=== PATIENT | female | born 1940 | race Caucasian/White ===

== ENCOUNTER → 2016-10-26 | Day surgery (SDC) | payer OTHER ==
[~2016-10-26] MED LIST: BUPIVACAINE 0.5% 10 ML SDV ONE; DEPO METHYLPREDNISOLONE 80 MG/ML SDV ONE
== END | disposition home or self-care (01) ==
LOC: FIMAGING 08:18
PROVIDERS: ATTEND Radiology Diagnostic Radiology
PROC: 3E0S3BZ Introduction of Anesthetic Agent into Epidural Space, Percutaneous Approach (ICD-10-PCS; principal; 2016-10-26)
PROC: 3E0S33Z Introduction of Anti-inflammatory into Epidural Space, Percutaneous Approach (ICD-10-PCS; principal; 2016-10-26)
DX: M46.1 Sacroiliitis, not elsewhere classified (principal); Z88.0 Allergy status to penicillin
CPT/HCPCS: J1040

== ENCOUNTER → 2016-11-15 | Outpatient (CLI) | payer OTHER | LOC: FIMAGING 15:37 | PROVIDERS: ATTEND Physician Assistant | DX: M16.11 Unilateral primary osteoarthritis, right hip (principal); M70.61 Trochanteric bursitis, right hip; M25.851 Other specified joint disorders, right hip ==

== ENCOUNTER → 2017-01-05 | Outpatient (CLI) | payer OTHER | LOC: FIMAGING 13:14 | PROVIDERS: ATTEND Nurse Practitioner | DX: M51.36 Other intervertebral disc degeneration, lumbar region (principal); Z98.1 Arthrodesis status ==

== ENCOUNTER → 2017-01-17 | Outpatient (CLI) | payer OTHER | LOC: FIMAGING 10:23 | PROVIDERS: ATTEND Nurse Practitioner | DX: M43.16 Spondylolisthesis, lumbar region (principal); M51.36 Other intervertebral disc degeneration, lumbar region; M47.896 Other spondylosis, lumbar region; M48.06 Spinal stenosis, lumbar region; M99.73 Connective tissue and disc stenosis of intervertebral foramina of lumbar region; Z98.1 Arthrodesis status ==

== ENCOUNTER → 2017-01-22 | Day surgery (SDC) | payer OTHER ==
[~2017-01-22] MED LIST changes: -BUPIVACAINE 0.5% 10 ML SDV ONE; -DEPO METHYLPREDNISOLONE 80 MG/ML SDV ONE; +TRIAMCINOLONE ACETONIDE 200 MG/5 ML MDV IM ONE
== END | disposition home or self-care (01) ==
LOC: FIMAGING 14:05
PROVIDERS: ATTEND Nurse Practitioner
PROC: 3E0S33Z Introduction of Anti-inflammatory into Epidural Space, Percutaneous Approach (ICD-10-PCS; principal; 2017-01-22)
DX: M54.16 Radiculopathy, lumbar region (principal); Z98.1 Arthrodesis status
CPT/HCPCS: J3301

== ENCOUNTER → 2017-01-25 | Outpatient (CLI) | payer OTHER | LOC: FIMAGING 11:58 | PROVIDERS: ATTEND Nurse Practitioner | DX: T84.226A Displacement of internal fixation device of vertebrae, initial encounter (principal); M48.06 Spinal stenosis, lumbar region; M51.85 Other intervertebral disc disorders, thoracolumbar region; Z98.1 Arthrodesis status ==

== ENCOUNTER → 2017-03-02 | Outpatient (CLI) | payer OTHER | LOC: FIMAGING 09:46 | PROVIDERS: ATTEND Surgery | DX: Z12.31 Encounter for screening mammogram for malignant neoplasm of breast (principal) | CPT/HCPCS: G0202-52 ==

== ENCOUNTER 2017-03-22 10:42 | Day surgery (SDC) | payer OTHER ==
[2017-03-22] MEDS ORDERED: LIDOCAINE 1% 300 MG/30 ML SDV ONE (12:38)
[2017-03-22] MEDS ORDERED: TRIAMCINOLONE ACETONIDE 200 MG/5 ML MDV IM ONE (12:38)
== END 2017-03-22 13:20 | disposition home or self-care (01) ==
LOC: FIMAGING 10:42
PROVIDERS: ATTEND Radiology Diagnostic Radiology
PROC: 3E0S33Z Introduction of Anti-inflammatory into Epidural Space, Percutaneous Approach (ICD-10-PCS; principal; 2017-03-22)
PROC: 3E0S3BZ Introduction of Anesthetic Agent into Epidural Space, Percutaneous Approach (ICD-10-PCS; principal; 2017-03-22)
PROC: B01B1ZZ Fluoroscopy of Spinal Cord using Low Osmolar Contrast (ICD-10-PCS; principal; 2017-03-22)
DX: M47.896 Other spondylosis, lumbar region (principal); M51.36 Other intervertebral disc degeneration, lumbar region; Z98.1 Arthrodesis status; I10 Essential (primary) hypertension
CPT/HCPCS: J3301

== ENCOUNTER 2017-07-18 05:32 | Inpatient (IN) | payer OTHER ==
[2017-07-18] MEDS ORDERED: ACETAMINOPHEN 500 MG TAB PO ONE (06:00)
[2017-07-18] MEDS ORDERED: GABAPENTIN 300 MG CAP PO ONE (06:00)
[2017-07-18] MEDS ORDERED: ceFAZolin 2 GM/SWFI 2 GM/20 ML SYR IVP ONE (06:00)
[2017-07-18] MEDS ORDERED: LIDOCAINE 1% 2 ML INJ ID PRN (06:39)
[2017-07-18] MEDS ORDERED: LR 1,000 ML IV ONE (06:39)
--- NOTE | 2017-07-18 06:44 | PDHPUP ---
History & Physical Update H&P update statement: This history and physical update is based on an assessment of the patient which was completed after admission or registration (within 24 hours), but prior to the surgery/procedure. H&P update: H&P reviewed & patient examined, no change in patient's condition since H&P completed
[2017-07-18] MEDS ORDERED: BUPIVACAINE 0.25% 30 ML SDV ONE (06:59)
[2017-07-18] MEDS ORDERED: THROMBIN (BOVINE) 5,000 UNIT VIAL TP ONE (06:59)
[2017-07-18] MEDS ORDERED: BACITRACIN 50,000 UNITS/10 ML SYR IRR ONE (07:00)
[2017-07-18] MEDS ORDERED: CHLORHEXIDINE GLUC HIBICLENS 118 ML BTL TP ONE (07:00)
[2017-07-18] MEDS ORDERED: BISACODYL 10 MG SUPP PR PRN (07:24)
[2017-07-18] MEDS ORDERED: POLYETHYLENE GLYCOL 3350 17 GM PKT PO PRN (07:24)
[2017-07-18] MEDS ORDERED: HYDROCODONE/APAP 5/325 TAB PO PRN (07:24)
[2017-07-18] MEDS ORDERED: ONDANSETRON DISINTEGRATING 4 MG TAB PO PRN (07:24)
[2017-07-18] MEDS ORDERED: NALOXONE HCL 0.4 MG/ML INJ IVP PRN ×2 (07:24→14:36)
[2017-07-18] MEDS ORDERED: MAGNESIUM HYDROXIDE 30 ML UDCUP PO PRN (07:24)
[2017-07-18] MEDS ORDERED: HYDROmorphone HCL/NS/PF 0.4 MG/2 ML SYR IVP PRN (07:24)
[2017-07-18] MEDS ORDERED: ONDANSETRON 4 MG/2 ML VIAL IVP PRN ×2 (07:24→14:36)
[2017-07-18] MEDS ORDERED: morphINE PCA 30 MG/30 ML PCA IV PRN (07:24)
[2017-07-18] MEDS ORDERED: LACTULOSE 20 GM/30 ML UDCUP PO PRN (07:24)
[2017-07-18] MEDS ORDERED: diphenhydrAMINE 25 MG CAP PO PRN (07:24)
[2017-07-18] MEDS ORDERED: NS W/ 20 KCl/L 1,000 ML IV SCH (07:30)
[2017-07-18] MEDS ORDERED: PROPOFOL/EMULSION 500 MG/50 ML BOTTLE IV ONE ×5 (07:43→13:26)
[2017-07-18] MEDS ORDERED: MIDAZOLAM 2 MG/2 ML VIAL ONE (07:43)
[2017-07-18] MEDS ORDERED: ROCURONIUM 50 MG/5 ML VIAL ONE (07:44)
[2017-07-18] MEDS ORDERED: LIDOCAINE 2% 100 MG/5 ML SYR ONE (07:44)
[2017-07-18] MEDS ORDERED: PHENYLEPHRINE 10 MG/ML SDV ONE (07:44)
[2017-07-18] MEDS ORDERED: DEXAMETHASONE 4 MG/ML VIAL ONE ×2 (07:44)
[2017-07-18] MEDS ORDERED: CETIRIZINE 10 MG TAB PO PRN (09:00)
--- NOTE | 2017-07-18 09:14 | PDANEPAE ---
ANE Past Medical History - Cardiovascular History Hx Hypertension: Yes Hx Arrhythmias: No Hx Chest Pain: No Hx Coronary Artery / Peripheral Vascular Disease: No Hx CHF / Valvular Disease: No Hx Palpitations: No Cardiovascular History Comment: NO CP - Pulmonary History Hx COPD: No Hx Asthma/Reactive Airway Disease: No Hx Recent Upper Respiratory Infection: No Hx Oxygen in Use at Home: No Hx Sleep Apnea: No Sleep Apnea Screening Result - Last Documented: Negative Pulmonary History Comment: HX PNEUMONIA X 3 SINCE - LAST . DENIES SOB W STAIRS - Neurologic History Hx Cerebrovascular Accident: No Hx Seizures: No Hx Dementia: No - Endocrine History Hx Diabetes: No - Renal History Hx Renal Disorders: Yes Renal History Comment: HX UTI'S- LAST 3 Y AGO - Liver History Hx Hepatic Disorders: No - Neurological & Psychiatric Hx Hx Neurological and Psychiatric Disorders: No - Cancer History Hx Cancer: Yes Cancer History Comment: R BREAST CA - Congenital Disorder History Hx Congenital Disorders: No - GI History Hx Gastrointestinal Disorders: Yes Gastrointestinal History Comment: REFLUX - Other Health History Other Health History: OA. HYST FOR ENDOMETRIOSIS - Chronic Pain History Chronic Pain: Yes (L KNEE) - Surgical History Prior Surgeries: Left Knee replacement 2103. SPINAL FUSION . HYST AGE 43- ENDOMETRIOSIS. R MASTECTOMY 01/25 W TISSUE EXP. L ANKLE TENDON REP ANE Review of Systems Review of Systems: - Exercise capacity METS (RN): 4 METS ANE Patient History - Allergies Allergies/Adverse Reactions: Penicillins Allergy (Verified 03/04/14 15:17) Hives - Home Medications Home Medications: Anastrozole [Arimidex 1 mg (*)] 1 mg PO DAILY 07/17/17 [Last Taken 07/16/17] Ascorbic Acid [Vitamin C 500 mg (*)] 1,000 mg PO DAILY PRN 07/17/17 [Last Taken 07/11/17] Calcium Carbonate [Oyster Shell Calcium 500 mg (*)] 1,000 mg PO DAILY 07/17/17 [ Last Taken 07/11/17] Cholecalciferol Vit D3 [Vitamin D3 (*)] 2,000 units PO DAILY 07/17/17 [Last Taken 07/04/17] Esomeprazole Magnesium [Nexium 24Hr] 20 mg PO Q3D 07/17/17 [Last Taken 07/12/17] Fexofenadine HCl [Ivette Allergy] 180 mg PO DAILY PRN 07/17/17 [Last Taken 3 Months Ago ~04/17/17] Herbals/Supplements -Info Only 1 ea PO DAILY 07/17/17 [Last Taken 07/11/17] Losartan Potassium [Cozaar 50 mg (*)] 50 mg PO DAILY 07/17/17 [Last Taken ] Meloxicam 15 mg PO DAILY 07/17/17 [Last Taken 07/11/17] [place]-3 Fatty Acids [Fish Oil 1000 mg (*)] 1,000 mg PO DAILY 07/17/17 [Last Taken 07/11/17] Simvastatin 10 mg PO DAILY 07/17/17 [Last Taken 07/16/17] Zolpidem Tartrate [Ambien 5MG (*)] 5 mg PO HS PRN 07/17/17 [Last Taken 07/04/17] - NPO status NPO Since - Liquids (Date): 07/17/17 NPO Since - Liquids (Time): 23:59 NPO Since - Solids (Date): 07/17/17 NPO Since - Solids (Time): 20:30 - Smoking Hx Smoking Status: Never smoked - Family Anes Hx Family Hx Anesthesia Complications: NONE ANE Labs/Vital Signs - Vital Signs Blood Pressure: 169/98 Heart Rate: 100 Respiratory Rate: 16 O2 Sat (%): 94 Height: 157.48 cm Weight: 63.503 kg ANE Physical Exam - Airway Neck exam: FROM Mallampati Score: Class 2 Mouth exam: normal dental/mouth exam - Pulmonary Pulmonary: no respiratory distress - Cardiovascular Cardiovascular: regular rate and rhythym - ASA Status ASA Status: II ANE Anesthesia Plan Anesthesia Plan: general endotracheal anesthesia Lines/Monitors: arterial line Urgent/Emergent Case: Sincere lala completed preop but documented later for safe timely pt care
--- NOTE | 2017-07-18 14:32 | SOAPPROG ---
SOAP Progress Note Assessment/Plan: Post Op Visit: S: Awake and alert. NAD. Pt with expected lower back pain O: AFVSS/PERRLA/EOMI no droop CN 2-12 grossly intact +lt touch 5/5 BUE/BLE = CDI TARA in place A/P: 76 yo female that is s/p removal of hardware at L4/5 and L5/S1 with new L2- L4 TLIF and PSF L2-S1 -orders in place -call with any questions or concerns -pt seen by Dr Morrison as well -brace when out of bed -xrays in am -STUCCO MASON ordered 07/18/17 14:25 Objective: Vital Signs Temp Pulse Resp BP Pulse Ox 37.1 C 100 16 169/98 H 94 07/18/17 06:17 07/18/17 09:13 07/18/17 09:13 07/18/17 09:13 07/18/17 09:13 Microbiology 07/18/17 09:30 Gram Stain - Final Back - Eswab ICD10 Worksheet Patient Problems: Problems Problem Status Onset Arthrodesis status Acute Lumbar radicular pain Acute Lumbar stenosis Acute S/P hardware removal Acute Osteoarthritis of knee Acute - ICD10 Problem Qualifiers (1) Lumbar stenosis (2) Lumbar radicular pain (3) Arthrodesis status (4) S/P hardware removal
[2017-07-18] MEDS ORDERED: ALBUTEROL 3 ML DEYVIAL IH PRN (14:36)
[2017-07-18] MEDS ORDERED: MEPERIDINE 25 MG/ML SYR IVP PRN (14:36)
--- NOTE | 2017-07-18 14:36 | POSTANESTH ---
Post Anesthetic Evaluation Cardiovascular Status: Similar to Pre-Op Cond Respiratory Status: Similar to Pre-op Cond. Level of Consciousness/Mental Status: Mildly Sleepy, Arousable Pain Control: Adequate, Prn Tx Ordered Nausea/Vomiting Control: Adequate, Prn Tx Ordered Complications Possibly Related to Anesthesia: None Noted
[2017-07-18] MEDS ORDERED: fentaNYL 100 MCG/2 ML INJ ONE (15:21)
[2017-07-18] MEDS: fentaNYL 100 MCG/2 ML INJ IVP PRN ×2 (15:22→15:41)
[2017-07-18] MEDS: ACETAMINOPHEN 500 MG TAB PO SCH ×2 (17:04→21:24)
[2017-07-18] MEDS: ANASTROZOLE 1 MG TAB PO SCH (17:05)
[2017-07-18] MEDS: FAMOTIDINE 20 MG TAB PO SCH ×2 (17:06→21:25)
[2017-07-18] MEDS: GABAPENTIN 300 MG CAP PO SCH ×2 (17:06→21:25)
[2017-07-18] MEDS: LOSARTAN POTASSIUM 50 MG TAB PO SCH (17:06)
[2017-07-18] MEDS: PANTOPRAZOLE SODIUM 40 MG TAB PO SCH (17:07)
[2017-07-18] MEDS: SENNOSIDES/DOCUSATE SODIUM TAB PO SCH ×2 (17:07→21:24)
[2017-07-18] MEDS: PRAVASTATIN SODIUM 20 MG TAB PO SCH (17:07)
[2017-07-18] MEDS: oxyCODONE IR 5 MG TAB PO PRN ×2 (17:26→21:24)
[2017-07-18] MEDS: METHOCARBAMOL 750 MG TAB PO PRN (17:26)
[2017-07-18] MEDS: ceFAZolin 2 GM/DEXTROSE 100 ML IV SCH (17:26)
[2017-07-18] MEDS: ZOLPIDEM TARTRATE 5 MG TAB PO PRN (23:17)
[2017-07-19] MEDS: ceFAZolin 2 GM/DEXTROSE 100 ML IV SCH (00:54)
[2017-07-19] MEDS: GABAPENTIN 300 MG CAP PO SCH ×3 (04:57→21:32)
[2017-07-19] MEDS: ACETAMINOPHEN 500 MG TAB PO SCH ×3 (04:58→21:32)
[2017-07-19 05:41] LABS: PLATELET COUNT 179 10^3/uL (150-400)
--- NOTE | 2017-07-19 06:10 | GOP ---
[f rep st] OPERATIVE REPORT DATE OF OPERATION: 07/18/2017 SURGEON: [place] Morrison MD NEUROSURGEON: [place] Morrison MD SOUND TECHNICIAN SUPERVISOR: Rai Broderick PA-C PREOPERATIVE DIAGNOSIS: Lumbar pseudoarthrosis, L4-L5. Prior lumbar fusion, L4-5, L5-S1. 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 Severe right foraminal stenosis L3-4. Right lumbosacral radiculo joseph. Lumbar degenerative disk disease. POSTOPERATIVE DIAGNOSIS: PROCEDURE PERFORMED: Removal of posterior segmental hardware L4, L5, S1 (37214). Exploration of spi nal fusion, L4-5, L5-S1. Posterolateral arthrodesis, L4-5, as an add on procedure (88057). We did a posterolateral and intervertebral arthrodesis at 2 levels, L2-3, L3-4 (54224, 70392). Placement of biomechanical intervertebral device, L2-3, L3-4 (50423 x 2). Same incision bone graft harvest. Plac ement of new posterior segmental instrumentation, L2, L3, L4, L5, S1, with a difficulty modifier adde d to placement of hardware (35030), spinal stereotaxy. FINDINGS: ESTIMATED BLOOD LOSS: 350 cc. INDICATIONS: The patient is an elderly female with a prior history of a 2-level fusion at L4-5, L5-S 1, who developed terrible right leg pain and subsequent imaging demonstrated the appearance of a pseu doarthrosis at L4-5. She had a significant spondylolisthesis at that level and was fused in situ in that position, but she did develop what appeared to be a pseudarthrosis. I was not convinced, farhan r, the pseudoarthrosis was the cause of her new-found grief. She developed severe right foraminal st enosis on the right at L3-4 due to adjacent segment disease, and she also had stenosis at L2-3 above. She saw numerous spine surgeons including my partner, Dr. Craig, Dr. Carlos Alberto Steward, and myself, and indeed Dr. Stewadr and I, and even Dr. Craig, we all recognized that the most powerful way to corre ct this pseudarthrosis at L4-5 was through an anterior approach. Dr. Craig and I reviewed her films and we did not really think we could get much reduction of her spondylolisthesis of L4 using this ap proach because there was a large posterior osteophyte coming off the rostral lip of L5 that would lik ashlie prevent any movement of the L4 bone posteriorly. Her new symptoms almost certainly were due to c ompression of the exiting L3 nerve root at the L3-4 segment and I thought that a two-level adjacent s egment TLIF would likely give her relief of her pain and, because she was solidly fused at L5-S1, I t hought L4 being in the middle of the construct was likely to go on and heal properly. She knew, camilo reagan, that this may fail and she may ultimately require an anterior procedure, but it was our hope silva t simply a posterior procedure could solve the problem. It is my understanding Dr. Steward had a dif ferent approach and wanted to go through the front at L4-5 and this too was reasonable, but we would save this approach and its associated risks for the failure of this new operation. The risk of spina l fluid leak, nerve injury, continued symptoms, pseudoarthrosis, adjacent segment disease, and screw and hardware failure and migration was discussed. The L4 screws had migrated rostrally into the L3-4 disk as a manifestation both of adjacent segment disease and possibly related to her pseudarthrosis. She knew this could happen again. She did want to proceed despite the risks. DESCRIPTION OF PROCEDURE: The patient was taken to the operating room, placed in supine position. G eneral anesthesia was begun. She was sterilely prepped and draped in usual fashion. A localizing x- ray was taken. We opened the prior incision and extended it rostrally only about 5 cm. It was a trent g incision initially but we did extend it about 2 inches rostrally to cover the 2 additional segments . The subcutaneous tissue was dissected using plasma blade down through the fascia and a subperioste al dissection was made down inferiorly on lamina of L1. We exposed the transverse processes of L2 an d L3. The transverse processes of L3 were buried deep in between the L4 and the L2 vertebral body co nsistent with her spondylolisthesis of L4. We removed the prior hardware at L4, L5 and S1, and indee d the L4 screws were loose and there was a pseudoarthrosis at L4-5. There was solid bony union at L5 -S1. We attached the [employer] reference frame to the L2 spinous process and performed an O-arm spin. Using frameless Stealth stereotaxy, we placed a pedicle screw on the left at L2-3. We then went to the left L4 pedicle. There was virtually no pedicle left due to the pseudoarthrosis and we chose the inferior pedicle trajectory. We had, on axial imaging, a good width of pedicle to use but the pedic le was extremely narrow inferiorly adjacent to the exiting L4 nerve at L4-5 and we were able to find the trajectory down through this bone and got good bony purchase. We put on the left side, a 5.5 x 4 5 and a 5.5 x 45 at L2 and L3. At L4, we used a 5.5 x 50. We had removed a 6.5 x 50, but with the n ew trajectory at L4, we used a thinner screw. L5 and S1 on the left, we used a 7.5 x 45 and a 7.5 x 45 screw. Those were the same size that were removed and there was good bony purchase at L5-S1. On the right-hand side, the right L2 pedicle was extremely small and we elected to use a 5 mm x 45 mm sc rew. This was the smallest screw that we chose and we used a 5.5 x 45 on the right at L3, and we ult imately selected a 5.5 x 50 mm screw on the right at L4. Here too, we had a similar problem of tryin g to pass the screw through the inferior pedicle as the rostral pedicle had been destroyed by the pse udarthrosis, and this took considerable time and added significant difficulty to the instrumentation portion of the case. We then went to the right S1 screw where we used a 6.5 x 50 mm screw to get goo d bicortical purchase. The L5 trajectory from the prior screw was of an acceptable trajectory but gi jasvir our new L4 screw that we had just placed, we could not fit an L5 screw through the old trajectory on the right-hand side and so we chose a 6.5 mm x 40 mm screw and placed it beginning in the inferio r L5 entry zone and extending it on a somewhat rostral trajectory and medial trajectory down into the old screw trajectory that was present. We did get good bony purchase but did use a somewhat shorter screw. We then took 100 mm olvin, placed it down on the left-hand side, increased the lordotic bend j ust slightly, reduced it into our tulips and we got really significant distraction and elevation of L 2 and L3 off L4. There was some elevation of L4 off L5, but really no motion of L4 with this approac h. On the right-hand side, we cut the olvin to about 95 mm and then reduced it into our tulips and put final cap screws there, and got good elevation of height at L2-3, L3-4. Our x-ray was excellent. W maria teresa had an excellent AP x-ray demonstrating no degenerative scoliotic curve, and the lateral x-ray demo nstrated a more normal lumbar lordosis. She was hyperlordotic before with the spondylolisthesis and there was some elevation of L4 in this process. We did not reduce L4, however, and did not think it was possible because of the bony lipping of L5. We decorticated all the posterolateral bone bilatera lly to get arthrodesis. The posterolateral arthrodesis was done at L2-3, L3-4, L4-5, and L5-S1. We then introduced the operating microscope and removed all the soft tissue of the bone at L2-3 and off the L3 spinous process. We harvested the inferior L2 spinous process and most of the L3 spinous proc ess for autologous grafting purposes. We preserved the very inferior arch of the L3 lamina, except i n the lateral recesses because I was concerned about dural adhesion in the inferior L3 arch. We deco mpressed on the right side at L2-3, localized the dura, opened the neural foramen, decompressed the e xiting L2 root. We then followed the L3 root adjacent to the L3 pedicle down into the L3-4 foramen. There was a large amount of spondylotic tissue in the foramen and the exiting L3 root was decompress ed. We continued decompressing adjacent to the L4 pedicle inferiorly and got a good lateral recess d ecompression on the patient's right-hand side at L3-4. We then extended our lami at L3-4 over to the left-hand side and got good decompression of the left lateral recess there, so we performed bilatera l decompressions at L3-4. We did not re-explore the L4-5 level. There was large amount of epidural scar tissue in the dura and our view would be threatened by such an approach. Under the scope, we re moved the L3-4 disk and its cartilaginous endplates. We did likewise at L2-3 and removed the cartila ginous endplates. We roughened the subchondral bone at each level to create arthrodesis and incised each space for placement of an expandable intervertebral device. We chose 7 x 23 mm devices. We aryan shoaib a large amount of bone autograft and BMP into the disk spaces. We used a total of 6 mg of BMP fo r the entire surgery. We inserted those devices. We expanded the devices at L2-3, L3-4, and did thi s all under fluoroscopic guidance and they were in excellent position. We then decorticated all the remaining posterolateral bone that could be found to create arthrodesis. All the screws had been tor qued according to company specification. A subfascial drain was placed. We then closed the incision in multiple layers using Vicryl sutures. A running PDS was placed in the skin itself. The patient was reversed from anesthesia, extubated, and transferred to recovery room in stable condition. COMPLICATIONS: None. /[id number]/MODL
--- NOTE | 2017-07-19 08:15 | NEUSURGPN ---
Date of Surgery: 07/18/17 Post Op Day: 1 Assessment/Plan: Assessment: 76 yo female that is s/p removal of hardware at L4/5 and L5/S1 with new L2-L4 TLIF and PSF L2-S1 POD #1 Plan: -s/p L spine fusion: pt states expected back pain and states that the leg feels better but will know more once up and out of bed -PT/OT-pending this am -TARA in place -orders in place -call with any questions or concerns -pt seen by Dr Morrison as well -brace when out of bed -xrays in am -CARD TENDER ordered-but working on PO medications at this time 07/18/17 14:25 Subjective: Awake and alert. NAD. Eating/drinking and voiding. No f/c/n/v/d. Objective: AFVSS/PERRLA/EOMI no droop CN 2-12 grossly intact +lt touch 5/5 BUE/BLE = CDI TARA in place Neuro Check Frequency: per routine Urinary Catheter in Place: No - Physician Discussed Patient with DrKristel: Prince Patient Seen by : Prince Neurosurgery Physical Exam - Vitals, I&O, Labs I and O 07/18/17 07/19/17 07/20/17 05:59 05:59 05:59 Intake Total 3980 Output Total 2470 1100 Balance 1510 -1100 Weight 63.503 kg Intake: Oral (ml) 600 IV Intake (ml) 2400 IV Infused (ml) 980 NS W/ 20 KCl/L 1,000 ml @ 680 75 mls/hr IV CONT BESSIE Rx #:[id number] ceFAZolin 2 GM/DEXTROSE 300 100 ml @ 200 mls/hr IV Q8H BESSIE Rx#:[id number] Output: Urine (ml) 1900 1100 Catheter 1900 1100 Estimated Blood Loss (ml) 350 TARA Drain Output (ml) 220 #1 Posterior Back Louis 220 [place] Other: Intake Quantity Yes Sufficient Number of Voids Catheter 1 Microbiology 07/18/17 09:30 Gram Stain - Final Back - Eswab Vital Signs Temp Pulse Resp BP Pulse Ox 36.6 C 87 17 135/83 H 98 07/19/17 04:00 07/19/17 04:00 07/19/17 04:00 07/19/17 04:00 07/19/17 04:00 Laboratory Results 07/19/17 04:44 07/19/17 04:44 ICD10 Worksheet Patient Problems: Problems Problem Status Onset Arthrodesis status Acute Lumbar radicular pain Acute Lumbar stenosis Acute S/P hardware removal Acute Osteoarthritis of knee Acute - ICD10 Problem Qualifiers (1) Lumbar stenosis (2) Lumbar radicular pain (3) Arthrodesis status (4) S/P hardware removal
[2017-07-19] MEDS: ANASTROZOLE 1 MG TAB PO SCH (10:44)
[2017-07-19] MEDS: SENNOSIDES/DOCUSATE SODIUM TAB PO SCH ×2 (10:44→21:33)
[2017-07-19] MEDS: LOSARTAN POTASSIUM 50 MG TAB PO SCH ×2 (10:45→11:47)
[2017-07-19] MEDS: PRAVASTATIN SODIUM 20 MG TAB PO SCH (10:46)
[2017-07-19] MEDS: METHOCARBAMOL 750 MG TAB PO PRN (10:46)
[2017-07-19] MEDS: PANTOPRAZOLE SODIUM 40 MG TAB PO SCH (10:46)
[2017-07-19] MEDS: FAMOTIDINE 20 MG TAB PO SCH ×2 (10:46→21:33)
--- NOTE | 2017-07-19 14:22 | ASMTCMCOM ---
CM Note CM Note Notes: Chart reviewed. Patient s/p lumbar spine surgery. Per OT recommending 24 hour care vs SNF. She does have a [facility] company in mind and will double check with her as to what the companies name is. CM to follow. Date Signed: 07/19/2017 02:21 PM Electronically Signed By:Ayanna Bejarano RN
[2017-07-19] MEDS: oxyCODONE IR 5 MG TAB PO PRN (19:08)
[2017-07-20] MEDS: ZOLPIDEM TARTRATE 5 MG TAB PO PRN ×2 (00:09→21:27)
[2017-07-20] MEDS: ACETAMINOPHEN 500 MG TAB PO SCH ×3 (06:05→21:27)
[2017-07-20] MEDS: GABAPENTIN 300 MG CAP PO SCH ×3 (06:05→21:27)
[2017-07-20] MEDS: oxyCODONE IR 5 MG TAB PO PRN ×4 (07:29→17:55)
--- NOTE | 2017-07-20 08:43 | NEUSURGPN ---
Assessment/Plan: Assessment: 76 yo female that is s/p removal of hardware at L4/5 and L5/S1 with new L2-L4 TLIF and PSF L2-S1 POD #2 Plan: -PT/OT -call with any questions or concerns -LSO when out of bed -Optimize pain management -Post op xrays: Hardware intact in good alignment -DVT prophx: TEDs, SCDS, Lovenox -Discussed with Dr. Morrison -Dispo planning for the next 1-days with [facility] Subjective: low back pain and right anterior hip pain Objective: NAD A&Ox3 MAEx4 11/17. Incision c/d/i. - Physician Discussed Patient with : Prince Neurosurgery Physical Exam - Vitals, I&O, Labs I and O 07/19/17 07/20/17 07/21/17 05:59 05:59 05:59 Intake Total 3980 1200 Output Total 2470 2530 Balance 1510 -1330 Weight 63.503 kg Intake: Oral (ml) 600 1200 IV Intake (ml) 2400 IV Infused (ml) 980 NS W/ 20 KCl/L 1,000 ml @ 680 75 mls/hr IV CONT BESSIE Rx #:[id number] ceFAZolin 2 GM/DEXTROSE 300 100 ml @ 200 mls/hr IV Q8H BESSIE Rx#:[id number] Output: Urine (ml) 1900 2350 Bedside Commode 100 Catheter 1900 1750 Toilet 500 Estimated Blood Loss (ml) 350 TARA Drain Output (ml) 220 180 #1 Posterior Back Louis 220 180 [place] Other: Intake Quantity Yes Yes Sufficient Number of Voids Catheter 1 Microbiology 07/18/17 09:30 Gram Stain - Final Back - Eswab Vital Signs Temp Pulse Resp BP Pulse Ox 36.6 C 89 16 164/80 H 94 07/20/17 07:32 07/20/17 07:32 07/20/17 07:32 07/20/17 07:32 07/20/17 07:32 Laboratory Results 07/19/17 04:44 07/19/17 04:44 ICD10 Worksheet Patient Problems: Problems Problem Status Onset Arthrodesis status Acute Lumbar radicular pain Acute Lumbar stenosis Acute S/P hardware removal Acute Osteoarthritis of knee Acute
[2017-07-20] MEDS: METHOCARBAMOL 750 MG TAB PO PRN ×2 (08:49→17:56)
[2017-07-20] MEDS: PRAVASTATIN SODIUM 20 MG TAB PO SCH (08:51)
[2017-07-20] MEDS: PANTOPRAZOLE SODIUM 40 MG TAB PO SCH (08:51)
[2017-07-20] MEDS: ANASTROZOLE 1 MG TAB PO SCH (08:51)
[2017-07-20] MEDS: FAMOTIDINE 20 MG TAB PO SCH ×2 (08:51→21:33)
[2017-07-20] MEDS: SENNOSIDES/DOCUSATE SODIUM TAB PO SCH ×2 (08:51→21:26)
[2017-07-20] MEDS: LOSARTAN POTASSIUM 50 MG TAB PO SCH (08:51)
--- NOTE | 2017-07-20 11:07 | ASMTCMCOM ---
CM Note CM Note Notes: Met with patient and her to review dc plan of care. She has a business card for [facility] and states she has worked with a therapist there in the past. Referral made via [employer]. Pending review. Plan home with [facility]. CM to follow. Date Signed: 07/20/2017 11:06 AM Electronically Signed By:Ayanna Bejarano RN
[2017-07-21] MEDS: ACETAMINOPHEN 500 MG TAB PO SCH ×3 (05:08→22:05)
[2017-07-21] MEDS: GABAPENTIN 300 MG CAP PO SCH ×3 (05:09→22:05)
--- NOTE | 2017-07-21 07:46 | NEUSURGPN ---
Date of Surgery: 07/18/17 Post Op Day: 3 Assessment/Plan: Assessment: 76 yo female that is s/p removal of hardware at L4/5 and L5/S1 with new L2-L4 TLIF and PSF L2-S1 POD #3 Plan: -PT/OT -call with any questions or concerns -LSO when out of bed -Optimize pain management, currently controlled with Oxycodone and Robaxin -Post op xrays: Hardware intact in good alignment -DVT prophx: TEDs, SCDS, Lovenox -Discussed with Dr. Morrison -Dispo: Likely dc TARA drain and home later today with home health care Subjective: Continues to have right leg pain. Using a walker to aid in ambulating. Objective: Awake. Alert. PERRL. EOMI Muscle strength full at 5/5 Sensation intact Incision with dressing c/d/i - Physician Discussed Patient with : Prince Neurosurgery Physical Exam - Vitals, I&O, Labs I and O 07/20/17 07/21/17 07/22/17 05:59 05:59 05:59 Intake Total 1200 1750 Output Total 2530 100 Balance -1330 1650 Intake: Oral (ml) 1200 1750 Output: Urine (ml) 2350 Bedside Commode 100 Catheter 1750 Toilet 500 TARA Drain Output (ml) 180 100 #1 Posterior Back Louis 180 100 [place] Other: Intake Quantity Yes Yes Sufficient Number of Voids Catheter 1 Toilet 1 Number of Stools Toilet 1 Microbiology 07/18/17 09:30 Gram Stain - Final Back - Eswab Vital Signs Temp Pulse Resp BP Pulse Ox 37.2 C 100 16 135/75 H 95 07/21/17 04:00 07/21/17 04:00 07/21/17 04:00 07/21/17 04:00 07/21/17 04:00 Laboratory Results 07/19/17 04:44 07/19/17 04:44 ICD10 Worksheet Patient Problems: Problems Problem Status Onset Arthrodesis status Acute Lumbar radicular pain Acute Lumbar stenosis Acute S/P hardware removal Acute Osteoarthritis of knee Acute
[2017-07-21] MEDS: ANASTROZOLE 1 MG TAB PO SCH (09:16)
[2017-07-21] MEDS: SENNOSIDES/DOCUSATE SODIUM TAB PO SCH ×2 (09:16→22:05)
[2017-07-21] MEDS: PRAVASTATIN SODIUM 20 MG TAB PO SCH (09:17)
[2017-07-21] MEDS: PANTOPRAZOLE SODIUM 40 MG TAB PO SCH (09:18)
[2017-07-21] MEDS: FAMOTIDINE 20 MG TAB PO SCH ×2 (09:20→22:05)
[2017-07-21] MEDS: LOSARTAN POTASSIUM 50 MG TAB PO SCH (09:20)
[2017-07-21] MEDS: ENOXAPARIN 40 MG/0.4 ML SYR SC SCH (09:21)
[2017-07-21] MEDS: oxyCODONE IR 5 MG TAB PO PRN ×2 (09:25→17:29)
[2017-07-21] MEDS: METHOCARBAMOL 750 MG TAB PO PRN ×2 (09:25→15:55)
[2017-07-21] MEDS: ZOLPIDEM TARTRATE 5 MG TAB PO PRN (22:05)
[2017-07-21 23:07] VITALS: RESP 16
[2017-07-22] MEDS: oxyCODONE IR 5 MG TAB PO PRN ×2 (02:02→10:42)
[2017-07-22] MEDS: ACETAMINOPHEN 500 MG TAB PO SCH (05:09)
[2017-07-22] MEDS: GABAPENTIN 300 MG CAP PO SCH (05:09)
--- NOTE | 2017-07-22 07:41 | NEUSURGPN ---
Date of Surgery: 07/18/17 Post Op Day: 4 Assessment/Plan: Assessment: 76 yo female that is s/p removal of hardware at L4/5 and L5/S1 with new L2-L4 TLIF and PSF L2-S1 POD #3 Plan: -PT/OT -TARA drain removed on 07/21 -LSO when out of bed -Optimize pain management, currently controlled with Oxycodone and Robaxin -Post op xrays: Hardware intact in good alignment -DVT prophx: TEDs, SCDS, Lovenox -Dispo: Home today with [facility] Subjective: Continues to have right leg pain Objective: Awake. Alert. PERRL. EOMI Facial expression symmetrical Muscle strength full at 5/5 Sensation intact Incision with dressing c/d/i Neurosurgery Physical Exam - Vitals, I&O, Labs I and O 07/21/17 07/22/17 07/23/17 05:59 05:59 05:59 Intake Total 1750 940 Output Total 100 Balance 1650 940 Intake: Oral (ml) 1750 940 Output: TARA Drain Output (ml) 100 #1 Posterior Back Louis 100 [place] Other: Intake Quantity Yes Yes Sufficient Number of Voids Toilet 1 2 Number of Stools Toilet 1 Microbiology 07/18/17 09:30 Gram Stain - Final Back - Eswab Vital Signs Temp Pulse Resp BP Pulse Ox 36.8 C 88 16 132/72 H 94 07/21/17 23:07 07/21/17 23:07 07/21/17 23:07 07/21/17 23:07 07/21/17 23:07 Laboratory Results 07/19/17 04:44 07/19/17 04:44 ICD10 Worksheet Patient Problems: Problems Problem Status Onset Arthrodesis status Acute Lumbar radicular pain Acute Lumbar stenosis Acute S/P hardware removal Acute Osteoarthritis of knee Acute
[2017-07-22 07:45] VITALS: BP 144/77; PULSE 93; TEMP 98.4; O2SAT 90
--- NOTE | 2017-07-22 07:47 | PDIAF ---
- Diagnosis Diagnosis: Pseudoarthrosis and lumbar stenosis. L2-S1 fusion on 07/18/16 Code Status: Full Code - Medication Management Discharge Medications: Medications to Continue on Transfer Anastrozole [Arimidex 1 mg (*)] 1 mg PO DAILY 07/17/17 [Last Taken 07/16/17] Ascorbic Acid [Vitamin C 500 mg (*)] 1,000 mg PO DAILY PRN 07/17/17 [Last Taken 07/11/17] Calcium Carbonate [Oyster Shell Calcium 500 mg (*)] 1,000 mg PO DAILY 07/17/17 [ Last Taken 07/11/17] Cholecalciferol Vit D3 [Vitamin D3 (*)] 2,000 units PO DAILY 07/17/17 [Last Taken 07/04/17] Esomeprazole Magnesium [Nexium 24Hr] 20 mg PO Q3D 07/17/17 [Last Taken 07/12/17] Fexofenadine HCl [Ivette Allergy] 180 mg PO DAILY PRN 07/17/17 [Last Taken 3 Months Ago ~04/17/17] Herbals/Supplements -Info Only 1 ea PO DAILY 07/17/17 [Last Taken 07/11/17] Losartan Potassium [Cozaar 50 mg (*)] 50 mg PO DAILY 07/17/17 [Last Taken ] [place]-3 Fatty Acids [Fish Oil 1000 mg (*)] 1,000 mg PO DAILY 07/17/17 [Last Taken 07/11/17] Simvastatin 10 mg PO DAILY 07/17/17 [Last Taken 07/16/17] Zolpidem Tartrate [Ambien 5MG (*)] 5 mg PO HS PRN 07/17/17 [Last Taken 07/04/17] Gabapentin [Neurontin 300 MG (*)] 300 mg PO Q8HRS #90 cap 07/22/17 [Last Taken Unknown] Methocarbamol [Robaxin 750 mg (*)] 750 mg PO QID PRN #60 tab 07/22/17 [Last Taken Unknown] oxyCODONE IR [Oxycodone Ir (*)] 5 - 10 mg PO Q4HRS PRN #90 tab 07/22/17 [Last Taken Unknown] Discharge Medications: Refer to the Discharge Home Medication list for PRN reason. - Orders Services needed: Physical Therapy, Occupational Therapy Isolation Type: None Diet Recommendation: no restrictions on diet Diet Texture: Regular Texture Diet Wound Care Instructions: OK to shower and get incision wet, be gentle. No soaking in the water. Activity/Weight Bearing Restrictions: Wear brace when out of bed. Refrain from lifting more than 10 pounds and bending/twisting. - Follow Up Care Current Providers and Referrals: Grace Resendiz MD [Primary Care Provider] - Attila Morrison MD [Medical Doctor] - follow up in 2 weeks
[2017-07-22] MEDS: ANASTROZOLE 1 MG TAB PO SCH (09:49)
[2017-07-22] MEDS: PRAVASTATIN SODIUM 20 MG TAB PO SCH (09:49)
[2017-07-22] MEDS: SENNOSIDES/DOCUSATE SODIUM TAB PO SCH (09:50)
[2017-07-22] MEDS: LOSARTAN POTASSIUM 50 MG TAB PO SCH (09:50)
[2017-07-22] MEDS: PANTOPRAZOLE SODIUM 40 MG TAB PO SCH (09:50)
[2017-07-22] MEDS: FAMOTIDINE 20 MG TAB PO SCH (09:50)
[2017-07-22] MEDS: ENOXAPARIN 40 MG/0.4 ML SYR SC SCH (09:52)
[2017-07-22] MEDS: METHOCARBAMOL 750 MG TAB PO PRN (09:58)
== END 2017-07-22 11:16 | disposition home health service (06) | DRG 454 ==
LOC: F3N 05:32
PROVIDERS: ADMIT Neurological Surgery; ATTEND Neurological Surgery
DX: M47.26 Other spondylosis with radiculopathy, lumbar region (principal); M51.16 Intervertebral disc disorders with radiculopathy, lumbar region; M96.0 Pseudarthrosis after fusion or arthrodesis; M43.16 Spondylolisthesis, lumbar region; Z98.1 Arthrodesis status; I10 Essential (primary) hypertension; K21.9 Gastro-esophageal reflux disease without esophagitis; Z85.3 Personal history of malignant neoplasm of breast; Z90.11 Acquired absence of right breast and nipple; Z96.652 Presence of left artificial knee joint
CPT/HCPCS: 97116-GP; 97161-GP; 97166-GO; 97530-GP; 97535-GO; C1713; G8978-GP-CI; G8978-GP-CK; G8979-GP-CI; G8980-GP-CI; G8987-GO-CK; G8988-GO-CI; G8989-GO-CI; J0171; J0690; J1100; J1650; J2001; J2250; J2370; J2704; J3010

== ENCOUNTER → 2017-07-25 | Outpatient (CLI) | payer OTHER | LOC: FIMAGING 14:45 | PROVIDERS: ATTEND Nurse Practitioner | DX: Z09 Encounter for follow-up examination after completed treatment for conditions other than malignant neoplasm (principal); Z98.1 Arthrodesis status ==

== ENCOUNTER → 2017-08-31 | Outpatient (CLI) | payer OTHER | LOC: FIMAGING 13:58 | PROVIDERS: ATTEND Nurse Practitioner | DX: Z98.1 Arthrodesis status (principal) ==

== ENCOUNTER → 2017-11-28 | Outpatient (CLI) | payer OTHER | LOC: FIMAGING 13:55 → FLAB 13:55 → EDSTATUS 13:58 | PROVIDERS: ATTEND Nurse Practitioner | DX: Z09 Encounter for follow-up examination after completed treatment for conditions other than malignant neoplasm (principal); Z98.1 Arthrodesis status ==

== ENCOUNTER → 2018-03-04 | Outpatient (CLI) | payer OTHER | LOC: FIMAGING 10:31 | PROVIDERS: ATTEND Internal Medicine Hematology & Oncology | DX: Z12.31 Encounter for screening mammogram for malignant neoplasm of breast (principal); Z85.3 Personal history of malignant neoplasm of breast; Z13.828 Encounter for screening for other musculoskeletal disorder; M85.89 Other specified disorders of bone density and structure, multiple sites ==

== ENCOUNTER → 2018-04-01 | Outpatient (CLI) | payer OTHER | LOC: FIMAGING 10:16 | PROVIDERS: ATTEND Nurse Practitioner | DX: M47.895 Other spondylosis, thoracolumbar region (principal); M43.17 Spondylolisthesis, lumbosacral region ==

== ENCOUNTER → 2018-07-29 | Outpatient (CLI) | payer OTHER | LOC: FIMAGING 15:51 | PROVIDERS: ATTEND Nurse Practitioner | DX: M51.16 Intervertebral disc disorders with radiculopathy, lumbar region (principal); Z98.1 Arthrodesis status ==